=== PATIENT | male | born 1965 | race Caucasian/White ===

== ENCOUNTER → 2019-03-31 | Outpatient (CLI) | payer BC ==
--- NOTE | 2019-03-31 09:24 | RAD ---
EXAM: Abdomen sonogram. HISTORY: Elevated liver function laboratory values. TECHNIQUE: Sonographic imaging of the abdomen was performed. COMPARISON: None. FINDINGS: The liver is normal in size. No focal hepatic lesion is seen. The spleen is normal in size. The gallbladder is unremarkable. The common bile duct is normal in caliber. The kidneys are normal in size. There is no hydronephrosis. The pancreas, aorta and inferior vena cava are predominantly obscured due to bowel gas. IMPRESSION: Unremarkable abdomen sonogram, with limited evaluation of the midline structures due to bowel gas. Electronically signed by: Caro Hurd MD (03/31/2019 9:21 AM) [facility] [id number]
== END | disposition home or self-care (01) ==
LOC: US 08:14
PROVIDERS: ATTEND Family Medicine
DX: Z09 Encounter for follow-up examination after completed treatment for conditions other than malignant neoplasm (principal); R94.5 Abnormal results of liver function studies
CPT/HCPCS: 76700